=== PATIENT | male | born 1960 | race Caucasian/White ===

== ENCOUNTER 2016-12-01 19:05 | Emergency (ER) | payer OTHER ==
[~2016-12-01] VITALS: Ht 172.7 cm; Wt 72.7 kg
[~2016-12-01 19:05] MED LIST: BEN25 PO; BENZ1TAB7; HALO5AMP3 IJ; LORA-441 PO
[2016-12-01 19:11] VITALS: Ht 172.7 cm; Wt 72.7 kg
--- NOTE | 2016-12-01 20:55 | ERD ---
ER Documentation Chief Complaint Date/Time DATE: 12/01/16 TIME: 20:53 Chief Complaint anxious, states his meds aren't helping him today. denies sob/cp HPI Patient is a 56-year-old homeless male with a past medical history of anxiety and panic attacks who presents to the ED with a panic attack that happened earlier today. Patient states that his brother stole his Ativan 2 days ago and he has not taken his medications for the last 2 days. Patient takes 1 mg of Ativan twice a day as prescribed by his psychiatrist. Patient states that he had a panic attack today however at this moment he has no complaints. He did have an episode of hallucinations however he does not have hallucinations or homicidal or suicidal ideations. Denies cough or chest pain or shortness of breath. No other complaints. ROS All systems reviewed and are negative except as per history of present illness. Medications Home Meds Active Scripts Lorazepam* (Ativan*) 0.5 Mg Tablet, 0.5 MG PO Q8, #10 TAB Prov:DONA ALBERT 06/25/15 Diphenhydramine Hcl* (Benadryl*) 25 Mg Cap, 25 MG PO Q6 for ANXIETY, #14 CAP Prov:GER WEINER MD 05/23/15 Diphenhydramine Hcl* (Benadryl*) 25 Mg Cap, 25 MG PO Q6 Y for MUSCLE SPASMS, # 12 TAB Prov:BERNICE DEWITT MD 04/04/15 Reported Medications Benztropine Mesylate* (Cogentin*) 1 Mg Tab, HS 05/11/13 Haloperidol Lactate (Haldol) 5 Mg/Ml Ampul, 5 MG IJ Y 04/09/13 Allergies Allergies: Coded Allergies: No Known Drug Allergy (Verified Allergy, Unknown, 02/08/14) PMhx/Soc History of Surgery: No Anesthesia Reaction: No Hx Neurological Disorder: No Hx Respiratory Disorders: Yes (EMPHYSEMA) Hx Cardiac Disorders: No Hx Psychiatric Problems: Yes (SCHIZOPHRENIA) Hx Miscellaneous Medical Probl: Yes (Schizophrenia) Hx Alcohol Use: No Hx Substance Use: No Hx Tobacco Use: Yes FmHx Family History: No coronary disease, No diabetes, No other Physical Exam Vitals Vital Signs Date Time Temp Pulse Resp B/P Pulse Ox O2 Delivery O2 Flow Rate FiO2 12/01/16 19:11 97.8 88 18 120/78 100 Physical Exam GENERAL: Well-developed, well-nourished male. Appears in no acute distress. HEAD: Normocephalic, atraumatic. EYES: Pupils are equally reactive bilaterally. EOMs grossly intact. No conjunctival erythema. ENT: Moist mucous membranes. No uvula deviation. No kissing tonsils. No exudates. NECK: Supple. No lymphadenopathy or thyromegaly. No meningismus. negative kernig. negative brudinski. LUNG: Clear to auscultation bilaterally. No rhonchi, wheezing, rales or coarse breath sounds. HEART: Regular rate and rhythm. No murmurs, rubs or gallops. Extremities: Equal pulses bilaterally. No peripheral clubbing, cyanosis or edema. No unilateral leg swelling. NEUROLOGIC: Alert and oriented. Moving all four extremities. 5/5 strength in all extremities. Normal speech. Steady gait. SKIN: Normal color. Warm and dry. No rashes or lesions. Capillary refill < 2 seconds Results 24 hrs Current Medications Medications (Trade) Dose Ordered Sig/Christine Route PRN Reason Start Time Stop Time Status Last Admin Dose Admin Lorazepam (Ativan) 1 mg ONCE ONCE PO 12/01/16 21:00 12/01/16 21:01 Procedures/MDM ER COURSE: I kept the patient and/or family informed of laboratory and diagnostic imaging results throughout the emergency room course. MEDICAL DECISION MAKING: This is a 56-year-old male who presents with panic earlier today. Vital signs were reviewed. Patient is afebrile. Patient is not hypoxic. Patient is not toxic or ill. I consulted my supervising physician Dr. Dewitt who agrees with my medical decision making and discharge plans. Patient will be given 1 mg of Ativan here in the ED. However patient will not be given a prescription for Ativan. Patient to follow-up with psychiatrist for further refills. At this point I do not think patient needs a 5150 hold. Patient does not have homicidal or suicidal ideations and I do not think further workup is necessary at this time. DISCHARGE: At this time, patient is stable for discharge and outpatient management with no new complaints during the ER course. Patient was sent home with instructions to follow-up with his psychiatrist for further medication refill patient will be discharged home with instructions to recheck for new or worsening symptoms such as fever, nausea, weakness, LOC and to follow up with primary care in the next 1 -2 days. Patient was advised to return to the ER for any new or worsening symptoms. Plan was discussed and patient and/or family understands and agrees. Home instructions were given. Departure Diagnosis: Primary Impression: Anxiety disorder Anxiety disorder type: unspecified anxiety disorder Qualified Code: F41.9 - Anxiety disorder, unspecified type Condition: Stable Patient Instructions: Understanding Anxiety Disorders Additional Instructions: Call your primary care doctor TOMORROW for an appointment during the next 1-2 days.See the doctor sooner or return here if your condition worsens before your appointment time. NOE LUU PA-C Dec 01, 2016 20:55
[2016-12-01] MEDS ORDERED: LORAZEPAM 1 MG TAB PO ONE (21:00)
== END 2016-12-01 22:02 | disposition home or self-care (01) ==
LOC: FTE 19:05
DX: F41.9 Anxiety disorder, unspecified (principal); Z87.891 Personal history of nicotine dependence
CPT/HCPCS: Z7502; Z7610; 99283

== ENCOUNTER 2018-05-04 15:19 | Emergency (ER) | END 2018-05-04 17:04 | disposition home or self-care (01) ==